=== PATIENT | male | born 1955 | race Caucasian/White ===

== ENCOUNTER 2018-05-06 20:17 | Emergency (ER) | payer OTHER ==
[~2018-05-06] VITALS: Ht 175.3 cm; Wt 112.9 kg
[2018-05-06 20:19] VITALS: BP 162/95
[2018-05-06] MEDS ORDERED: LIDOCAINE 2%, 20ML SQ ONE (20:30)
== END 2018-05-06 21:54 | disposition home or self-care (01) ==
LOC: ED 21:48
DX: S71.111A Laceration without foreign body, right thigh, initial encounter (principal); W26.0XXA Contact with knife, initial encounter; Y93.89 Activity, other specified; Y92.009 Unspecified place in unspecified non-institutional (private) residence as the place of occurrence of the external cause; Y99.8 Other external cause status
CPT/HCPCS: 12031; 99284

== ENCOUNTER 2018-05-10 09:53 | Emergency (ER) | payer SELFPAY ==
[~2018-05-10] VITALS: Ht 175.3 cm; Wt 112.9 kg
[2018-05-10 09:58] VITALS: BP 173/100
== END 2018-05-10 10:43 | disposition home or self-care (01) ==
LOC: ED 10:15
DX: S71.111D Laceration without foreign body, right thigh, subsequent encounter (principal); X58.XXXD Exposure to other specified factors, subsequent encounter
CPT/HCPCS: 99282